=== PATIENT | male | born 1980 | race Caucasian/White ===

== ENCOUNTER → 2022-03-05 15:43 | Outpatient (CLI) | payer BC, SELFPAY ==
--- NOTE | ~2022-03-05 | US_ITS ---
US scrotum doppler INDICATION: Status post vasectomy. Left testicle pain. TECHNIQUE: Testicular sonogram utilizing grayscale and color Doppler FINDINGS: The testes are normal in size and appearance. No focal lesions are seen. The right testes measures 4.4 x 2.3 x 2.9 cm centimeters, and the left testis measures 4.5 x 2.6 x 2.7 cm cm. There is normal vascular flow to both testes. The right and left epididymides appear normal. There are bilateral hydroceles, small on the right and moderate on the left. There is a left varicoce le. IMPRESSION: 1. Left-sided varicocele. 2: Bilateral hydroceles, left greater than right. Reviewed, dictated and finalized at location A.
== END ==
PROVIDERS: Visit Provider Urology
DX: I86.1 Scrotal varices (principal); N43.3 Hydrocele, unspecified; Z98.52 Vasectomy status
CPT/HCPCS: 76870; 93976